=== PATIENT | male | born 1995 | race Caucasian/White ===

== ENCOUNTER 2019-11-18 13:55 | Emergency (ER) | payer BC, OTHER ==
[~2019-11-18] VITALS: Ht 185.4 cm; Wt 66.0 kg
[2019-11-18] MEDS ORDERED: SODIUM CHLORIDE 0.9% 1,000 ML IV ONE (14:10)
[2019-11-18] MEDS ORDERED: INSU100I18 SC (14:18)
[2019-11-18] MEDS ORDERED: INSU100I34 SC (14:18)
[2019-11-18] MEDS ORDERED: ESCI5TAB7 PO (14:18)
[2019-11-18] MEDS ORDERED: MIRT15TA PO (14:18)
[2019-11-18] MEDS ORDERED: SODIUM CHLORIDE 0.9% 1,000ML IVBOLUS ONE (14:30)
[2019-11-18] MEDS ORDERED: SODIUM CHLORIDE FLUSH 10ML SYR IVF ONE (14:30)
[2019-11-18 14:40] LABS: PH, VENOUS 7.318 pH (7.320-7.420)
[2019-11-18 14:44] LABS: BASOPHILS % (AUTO) 0 % (0-1); EOSINOPHILS # (AUTO) 0.07 x10^3/uL (0-0.4); EOSINOPHILS % (AUTO) 1 % (1-7); LYMPHOCYTES # (AUTO) 1.27 x10^3/uL (1-3.4); LYMPHOCYTES % (AUTO) 23 % (22-44); MD NO; MEAN CORPUSCULAR HEMOGLOBIN 31.8 pg (27.5-34.5); MEAN CORPUSCULAR HGB CONC 33.9 g/dL (33.2-36.2); MEAN CORPUSCULAR VOLUME 93.8 fL (81-97); MEAN PLATELET VOLUME 8.6 fL (7.4-10.4); MONOCYTES # (AUTO) 0.32 x10^3/uL (0.2-0.8); MONOCYTES % (AUTO) 6 % (2-9); NEUTROPHILS # (AUTO) 3.87 x10^3/uL (1.8-6.8); NEUTROPHILS % (AUTO) 70 % (42-75); PLATELET COUNT 294 x10^3/uL (130-400); RED BLOOD COUNT 4.51 x10^6/uL (4.38-5.82); RED CELL DISTRIBUTION WIDTH 13.5 % (9.4-14.8)
[2019-11-18 14:51] LABS: ALBUMIN 3.3 g/dL (3.4-5.0); ANION GAP 8 mmol/L (5-15); CALCIUM 8.3 mg/dL (8.5-10.1); CHLORIDE 104 mmol/L (98-107); CREATININE 1.04 mg/dL (0.7-1.3)
[2019-11-18 14:51] LABS: AMPHETAMINE SCREEN, URINE Negative (Negative); BARBITURATE SCREEN, URINE Negative (Negative); BENZODIAZEPINE SCREEN, URINE Negative (Negative); CANNABINOID SCREEN, URINE Positive (Negative); COCAINE SCREEN, URINE Negative (Negative); OPIATE SCREEN, URINE Negative (Negative)
[2019-11-18 14:53] LABS: METHADONE SCREEN, URINE Negative (Negative)
[2019-11-18 14:54] LABS: SALICYLATE LEVEL < 1.7 mg/dL (2.8-20.0)
[2019-11-18 15:12] LABS: ACETONE, SERUM Trace (Negative)
--- NOTE | 2019-11-18 15:18 | NUR ---
SITTER MONITORING FROM [facility]
[2019-11-18] MEDS ORDERED: INSULIN REGULAR 100 UNITS/ML, 3ML VIAL SQ-INSULIN ONE (17:00)
[2019-11-18] MEDS ORDERED: INSULIN SINGLE DOSE, ER ONE (17:00)
--- NOTE | 2019-11-18 17:03 | NUR ---
PT RESTING COMFORTABLY IN [place]. AROUSES TO VERBAL STIMULI. DENIES NEEDS AT THIS TIME. SITTER MONITORING FROM [facility]
--- NOTE | 2019-11-18 18:53 | NUR ---
Report received from ANN Santillan. This RN to assume care.
--- NOTE | 2019-11-18 19:10 | NUR ---
Patient sleeping in rney. Respirations even and unlabored. Room secured, belongings in locked cabinet. Sitter outside.
--- NOTE | 2019-11-18 20:14 | NUR ---
Patient sleeping in rney. Respirations even and unlabored. Room secured, belongings in locked cabinet. Sitter outside.
[2019-11-18] MEDS ORDERED: MIRTAZAPINE 15 MG TABLET ONE (20:42)
[2019-11-18] MEDS ORDERED: MIRTAZAPINE 15 MG TABLET PO SCH (21:00)
[2019-11-18] MEDS ORDERED: ESCITALOPRAM 10MG TABLET PO SCH (21:00)
--- NOTE | 2019-11-18 21:15 | NUR ---
Medicated patient per mar. Respirations even and unlabored. Patient has no complaints. Room secured, belongings locked in cabinet, sitter outside.
--- NOTE | 2019-11-18 22:20 | NUR ---
Patient sleeping in rney. Respirations even and unlabored. Room secured, belongings in locked cabinet. Sitter outside.
--- NOTE | 2019-11-18 23:23 | NUR ---
Patient sleeping in rney. Respirations even and unlabored. Room secured, belongings in locked cabinet. Sitter outside.
--- NOTE | 2019-11-19 00:43 | NUR ---
Patient sleeping in rney. Respirations even and unlabored. Room secured, belongings in locked cabinet, sitter outside.
--- NOTE | 2019-11-19 01:15 | NUR ---
Patient sleeping in rney. Respirations even and unlabored. Room secured, belongings in locked cabinet, sitter outside.
--- NOTE | 2019-11-19 02:13 | NUR ---
Patient sleeping in rney. Respirations even and unlabored. Room secured, belongings in locked cabinet, sitter outside.
--- NOTE | 2019-11-19 04:25 | NUR ---
Report given to ANN Baeza. Patient care transferred.
--- NOTE | 2019-11-19 04:29 | NUR ---
Assumed care of pt. Moved pt from room 40 to room 1. Ambulated independently, steady gait. Transitioned to hospital bed for comfort. Provided with snack. Call light within reach. Sitter remains in immediate vicinity. POC discussed with pt, verbalized understanding
--- NOTE | 2019-11-19 05:20 | NUR ---
Ciara mobley in EDM - 11/19/19 at 0521 by ISREAL ED provider at bedside
--- NOTE | 2019-11-19 06:02 | NUR ---
Resting comfortably on stretcher. Visible chest rise/fall noted. No s/sx acute distress. Sitter within immediate vicinity of pt
--- NOTE | 2019-11-19 07:15 | NUR ---
PT RESTING ON HOSPITAL BED AT THIS TIME, PT WITH NO NEEDS AT THIS TIME. SI PRECAUTIONS OBSERVED
--- NOTE | 2019-11-19 08:52 | NUR ---
PT GIVEN MEAL TRAY, DENIES ANY NEEDS AT THIS TIME
--- NOTE | 2019-11-19 09:41 | NUR ---
report received from ANN Merida, pt sleeping on iris. resps even and unlabored. sitter monitoring from [facility] for safety. room secure.
[2019-11-19] MEDS ORDERED: INSULIN GLARGINE 100 UNITS/ML, PEN SQ-INSULIN SCH (10:30)
--- NOTE | 2019-11-19 10:42 | NUR ---
PT'S GLUCOSE TESTED, READING 416. PT STATES HE TYPICALLY TAKES 26 UNITS OF LANTUS EVERY MORNING AND TAKES ONE UNIT OF NOVOLOG FOR EVERY 50 PTS GLUCOSE OVER 150 ACHS. PT CONFIRMED THAT HE DOES NOT WEAR AN INSULIN PUMP. PT HAS ALREADY EATEN BREAKFAST. SANDRA KONGBIBBER NOTIFIED. EDMD GAVE ORDERS FOR SLIDING SCALE INSULIN, HUMALOG ACCORDING TO PT'S HOME REGIMEN TO BE GIVEN ACHS WELL LANTUS 26 UNITS. THIS RN CONFIRMED WITH PHARMACY THAT HUMALOG IS EQUIVILENT TO NOVOLOG. LANTUS PEN REQUESTED FROM PHARMACY. VS REASSESSED, REMAINS STABLE. PT IS A&O, RESPS EVEN AND UNLABORED. SITTER MONITORING FROM [facility]. ROOM SECURE.
--- NOTE | 2019-11-19 10:49 | NUR ---
MD JETT STATES STAT BLOOD GLUCOSE LAB DRAW IS NOT NECESSARY AT THIS TIME, PT TO BE MEDICATED ACCORDING TO LAST FINGERSTICK GLUCOSE.
--- NOTE | 2019-11-19 10:52 | NUR ---
HUMALOG ORDER REVIEWED, ORDER IS FOR PEN ADMINISTRATION. PHARMACY CALLED AND NOTIFIED OF NEED TO SEND HUMALOG PEN WELL LANTUS PEN. AWAITING INSULINS FOR ADMIN.
[2019-11-19 10:53] VITALS: BP 117/68
[2019-11-19] MEDS ORDERED: INSULIN LISPRO 100 UNITS/ML, PEN SQ-INSULIN SCH (11:00)
--- NOTE | 2019-11-19 11:00 | NUR ---
LATE ENTRY FOR 1100: [facility] AT BEDSIDE FOR ASSESSMENT.
--- NOTE | 2019-11-19 11:23 | NUR ---
THROUGHPUT RN::PT PACKET FAXED TO [facility]
--- NOTE | 2019-11-19 11:59 | NUR ---
PT STATES THAT HE WAS HOSPITALIZED AT [facility] WITHIN THE LAST MONTH, PT WAS LISTED SELF PAY IN REGISTRATION. REGISTRATION NOTIFIED TO REASSESS WITH PT. PT GAVE REGISTRATION UPDATED INSURANCE INFO. THROUGHPUT RN NOTIFIED OF CHANGE, THROUGHPUT RN TO FAX PACKET TO [facility].
[2019-11-19] MEDS ORDERED: INSULIN LISPRO 100 UNITS/ML, PEN SQ-INSULIN ONE (13:00)
[2019-11-19] MEDS ORDERED: INSULIN REGULAR 100 UNITS/ML, 3ML VIAL SQ-INSULIN ONE (13:00)
--- NOTE | 2019-11-19 13:05 | NUR ---
SANDRA JETT NOTIFIED OF REPEAT BP 420 TAKEN ONE HOUR AFTER 5 UNITS HUMALOG AND LANTUS ADMINISTRATION. SANDRA JETT INSTRUCTED RN TO GIVE PT AN ADDITIONAL DOSE OF HUMALOG 8 UNITS SQ. PT AGREEABLE TO THIS. SI MEAL TRAY PROVIDED FOR PT, SANDWICH AND CHIPS. PT IS A&O, RESPS EVEN AND UNLABORED, NO COMPLAINT AT THIS TIME. [facility]. ROOM SECURE. Addendum: 11/19/19 at 1309 by ANTONIA SANDRA JETT NOTIFIED OF REPEAT BG 420 TAKEN ONE HOUR AFTER 5 UNITS HUMALOG AND LANTUS ADMINISTRATION. SANDRA JETT INSTRUCTED RN TO GIVE PT AN ADDITIONAL DOSE OF HUMALOG 8 UNITS SQ. PT AGREEABLE TO THIS. SI MEAL TRAY PROVIDED FOR PT, SANDWICH AND CHIPS. PT IS A&O, RESPS EVEN AND UNLABORED, NO COMPLAINT AT THIS TIME. [facility]. ROOM SECURE.
--- NOTE | 2019-11-19 14:12 | NUR ---
THROUGHPUT RN::PT HAS UPDATED INSURANCE. [facility] NOTIFIED, STATED THEY WILL LOOK INTO ADMITTING PT. JUST CALLED AGAIN, STATED THEY ARE STILL LOOKING INTO IT.
--- NOTE | 2019-11-19 14:15 | NUR ---
SEUNU RN::PT PACKET FAXED TO [facility], CHRIS SH[facility], AND NEISHA SANCHEZ
--- NOTE | 2019-11-19 14:58 | NUR ---
PT ON HOSPITAL BED, DOZING INTERMITTENTLY, RESPS EVEN AND UNLABORED. ROOM SECURE, SITTER MONITORING FROM [facility]. BG REASSESSED BY TASK ANN PERRY. AWAITING ACCEPTANCE FROM PSYCH FACILITY AT THIS TIME.
--- NOTE | 2019-11-19 15:11 | NUR ---
REPORT GIVEN TO ANN ACKERMAN WHO IS ASSUMING CARE. PT IS DOZING ON AND OFF, RESPS EVEN AND UNLABORED. PT HAS NOT CONSUMED MUCH OF LUNCH TRAY WHICH IS AT BEDSIDE. SITTER MONITORING FROM [facility]. ROOM SECURE.
--- NOTE | 2019-11-19 15:27 | NUR ---
Jana accepting patient at [facility]. Accepting doctor: Dr. Mustafa. Able to go to [facility]. The RN from [facility] will call us for report soon per Jana.
--- NOTE | 2019-11-19 16:17 | NUR ---
GEOVANNISA WILL ARRIVE TO PICK PT UP ETA AT 1730
--- NOTE | 2019-11-19 16:21 | NUR ---
PT UPDATED ON EPARTURE WILL CHECK SUGAR PRIOR TO LEAVING
--- NOTE | 2019-11-19 18:05 | NUR ---
CALLED [facility] FOR UPDATED ETA - STATED THEY DO NOT HAVE AN ETA AT THIS TIME THEY ARE INUNDATED WITH [employer] CURRENTLY. WILL SUPERVISOR WORD PROCESSING PT SOON RIG AVAILABLE
--- NOTE | 2019-11-19 18:27 | NUR ---
report given to [facility] pt aware and agrees to transport
== END 2019-11-19 18:30 ==
LOC: ED 15:34
DX: R45.851 Suicidal ideations (principal); F32.9 Major depressive disorder, single episode, unspecified; E11.9 Type 2 diabetes mellitus without complications
CPT/HCPCS: 36415; 80048; 80307; 82010; 82040; 82803; 82962; 85025; 96360; 96361; 99285; J1815; J7030